=== PATIENT | female | born 1970 | race Two or more races ===

== ENCOUNTER 2017-05-31 06:16 | Day surgery (SDC) | payer OTHER ==
--- NOTE | 2017-05-30 10:34 | Pre-Procedure Note/Attestation ---
Pre-Procedure Note/Attestation Complete Prior to Procedure Planned Procedure: left Procedure Narrative: phaco with IOL, OS Indications for Procedure Pre-Operative Diagnosis: cataract Attestation I attest that I discussed the nature of the procedure; its benefits; risks and complications; and alternatives (and the risks and benefits of such alternatives ), prior to the procedure, with the patient (or the patient's legal rental sales representative). I attest that, if there was a reasonable possibility of needing a blood transfusion, the patient (or the patient's legal rental sales representative) was given the [facility] standardized written summary, pursuant to the [place]gard Josh Blood Safety Act ([place] Health and Safety Code # 1645, as amended). I attest that I re-evaluated the patient just prior to the surgery and that there has been no change in the patient's H&P, except as documented below: ORQUIDEA HANLEY May 30, 2017 10:34
--- NOTE | 2017-05-30 10:41 | Opthalmology H&P ---
Ophthalmology H&P H&P Chief Complaint: decreased vision in left eye HPI Vision Affects Ability to: read, focus/use eyes together, manage personal affairs HPI Narrative blurry vision Exam Visual Acuity: OD: 20/40 OS: 20/80 Tension: OD: 16 Eye Exam: normal OU: external exam, palpebral fissure-width, marginal reflex distance, levator function, corneas, anterior chambers, fundus exam, findings: lens - OD: IOL OS: ns Assessment/Plan Diagnosis: (1) Cataract Treatment Plan: cataract extraction w/ lens implant Goals of Treatment: improvement of vision, enhance quality of life Attestation Attestation The risks and benefits of the surgery as well as alternative procedures were explained to the patient in detail. ORQUIDEA HANLEY May 30, 2017 10:41
[2017-05-31] VITALS (10 sets, daily range): BP systolic 103–129; BP diastolic 65–79
[~2017-05-31] VITALS: Ht 165.1 cm; Wt 69.4 kg
[~2017-05-31 06:16] MED LIST: LEVOTHYROXINE88 MCG ORAL
[2017-05-31] MEDS ORDERED: Akten 3.5% 1ml Btl LEFT EYE ONE (07:00)
[2017-05-31] MEDS: Cyclopentolate 1% Opth Sol 2ml LEFT EYE SCH ×3 (07:59→08:19)
[2017-05-31] MEDS ORDERED: BSS 500ml btl ONE (08:00)
[2017-05-31] MEDS: Tropicamide 1% Opth 15ml Soln LEFT EYE SCH ×3 (08:00→08:19)
[2017-05-31] MEDS: Phenylephrine 10% Opth Soln 5ml LEFT EYE SCH ×3 (08:00→08:20)
[2017-05-31] MEDS ORDERED: Maxitrol Opth Oint 3.5gm ONE (08:00)
[2017-05-31] MEDS ORDERED: Dexamethasone 4mg/ml vial ONE (08:00)
[2017-05-31] MEDS ORDERED: Pred Forte 1% Opth Susp 1ml ONE (08:00)
[2017-05-31] MEDS: Tobramycin Op Soln 0.3% 5ml LEFT EYE SCH ×3 (08:00→08:20)
[2017-05-31] MEDS ORDERED: EPINEPHrine 1mg/1ml Amp ONE (08:00)
[2017-05-31] MEDS ORDERED: Pilocarpine 4% Opth 15ml Soln ONE (08:53)
[2017-05-31] MEDS ORDERED: NS Irrig 1000ml ONE (09:00)
[2017-05-31] MEDS ORDERED: Sterile Water Irrig 1000ml IRRIG ONE (09:00)
[2017-05-31] MEDS ORDERED: LR 1000ml ONE (09:00)
[2017-05-31] MEDS ORDERED: fentaNYL 100 mcg/2 mL IV ONE (09:00)
[2017-05-31] MEDS ORDERED: Midazolam 2mg/2ml Inj ONE (09:00)
--- NOTE | 2017-05-31 09:13 | Anethesia Preoperative Eval ---
Anesthesia Pre-op PMH/ROS General Date of Evaluation: May 31, 2017 Time of Evaluation: 09:11 Anesthesiologist: july ASA Score: ASA 2 Mallampati Score Class I : Soft palate, uvula, fauces, pillars visible Class II: Soft palate, uvula, fauces visible Class III: Soft palate, base of uvula visible Class IV: Only hard plate visible Mallampati Classification: Class II Surgeon: tristen Diagnosis: cataract Surgical Procedure: cataract extraction with IOL Anesthesia History: none Family History: no anesthesia problems Allergies: Coded Allergies: ACETAMINOPHEN (Verified Allergy, Intermediate, itching; swollen head, ) HYDROCODONE (Verified Allergy, Intermediate, itching, 05/30/17) VALDECOXIB (Verified Allergy, Mild, itching, 05/30/17) Medications: see eMAR Past Medical History Cardiovascular: Denies: HTN, CAD, MA, valve dz, arrhythmia, other Pulmonary: Denies: asthma, COPD, YULIA, other Gastrointestinal/Genitourinary: Denies: GERD, CRI, ESRD, other Neurologic/Psychiatric: Denies: dementia, CVA, depression/anxiety, TIA, other Endocrine: Reports: hypothyroidism, Denies: DM, steroids, other HEENT: Reports: cataract (L), Denies: cataract (R), glaucoma, [place] (L), [place] (R), other Hematology/Immune: Denies: anemia, DVT, bleeding disorder, other Musculoskeletal/Integumentary: Denies: OA, RA, DJD, DDD, edema, other PSxH Narrative: c/s right eye surgery Anesthesia Pre-op Phys. Exam Physician Exam Last Vital Signs Date Time Temp Pulse Resp B/P (MAP) Pulse Ox O2 Delivery O2 Flow Rate FiO2 05/31/17 08:03 97.3 61 20 129/78 99 Room Air Constitutional: NAD Neurologic: CN 2-12 intact Cardiovascular: RRR Respiratory: CTA Gastrointestinal: S/NT/ND Airway Exam Mallampati Score: Class II MO: full ROM: full Dentures: no upper, no lower Anesthesia Pre-op A/P Labs Urine Test Test 05/31/17 07:45 Urine HCG, Qualitative Negative Studies Pre-op Studies: EKG - sr Risk Assessment & Plan Plan: mac Status Change Before Surgery: No Pre-Antibiotics Drug: none TARRILLION,NAVDEEP SACK LIFTER May 31, 2017 09:13
--- NOTE | 2017-05-31 09:28 | Immediate Post-Op Evaluation ---
Immediate Post-Op Evalulation Immediate Post-Op Evalulation Procedure: cataract extraction left eye Date of Evaluation: May 31, 2017 Time of Evaluation: 09:25 IV Fluids: 300 Blood Pressure Systolic: 107 Blood Pressure Diastolic: 75 Pulse Rate: 62 Respiratory Rate: 14 O2 Sat by Pulse Oximetry: 98 Temperature (Fahrenheit): 97.7 Nausea: No Vomiting: No Complications none Patient Status: awake, reacts, patent Hydration Status: adequate Drug: none TARRILLION,NAVDEEP COOKIE MIXER HELPER May 31, 2017 09:28
[2017-05-31] MEDS ORDERED: BSS 15ml BTL ONE (09:58)
[2017-05-31] MEDS ORDERED: Povidone-Iodine 5% opth solution ONE (09:58)
[2017-05-31] MEDS ORDERED: Sodium Hyaluronate 14 mg/ml 0.85ml ONE (09:59)
--- NOTE | 2017-05-31 11:57 | 48 Hour Post Anesthesia Eval ---
Post Anesthesia Evaluation Procedure: cataract extraction left eye Date of Evaluation: May 31, 2017 Time of Evaluation: 11:56 Blood Pressure Systolic: 105 0: 70 Pulse Rate: 61 Respiratory Rate: 14 O2 Sat by Pulse Oximetry: 99 Airway: patent Nausea: No Vomiting: No Hydration Status: adequate Cardiopulmonary Status: stable Mental Status/LOC: patient returned to baseline Post-Anesthesia Complications: none Follow-up care needed: N/A NAVDEEP KING CRNA May 31, 2017 11:57
--- NOTE | 2017-06-03 09:15 | Brief Operative Note ---
Immediate Post Operative Note Operative Note Chief Complaint: blurry vision, OS Pre-op Diagnosis: cataract, OS Procedure: Phaco with IOL, OS Post-op Diagnosis: Pseudophakia, OS Post-op Diagnosis: same as pre-op Findings: consistent w/pre-op dx studies Surgeon: Mylene Anesthesiologist: Dora Anesthesia: MAC Specimen: none Complications: none Condition: stable Fluids: LR Estimated Blood Loss: none Drains: none Implant(s) used?: Yes ORQUIDEA HANLEY Jun 03, 2017 09:15
--- NOTE | 2017-06-04 09:20 | Operative Note - PDOC ---
Operative Note Operative Note Date of Operation/Procedure: May 31, 2017 Chief Complaint: blurry vision, OS Pre-op Diagnosis: cataract, OS Procedure: Phaco with IOL, OS Post-op Diagnosis: Pseudophakia, OS Post-op Diagnosis: same as pre-op Operative Findings: consistent w/pre-op dx studies Surgeon: Mylene Anesthesiologist: Dora Anesthesia: MAC Specimen: none Complications: none Condition: stable Fluids: LR Estimated Blood Loss: none Drains: none Implant(s) used?: Yes Indications for Procedure This patient has been complaining visually significant cataract in the affected eye with the best corrected visual acuity under moderate glare conditions worse. The patient complains of difficulties with glare in performing activities of daily living and wants to manage personal affairs with comfort and accuracy and see well enough to move with safety at home and outdoors. The risks, benefits and alternatives of the procedure were discussed with the patient in the office prior to scheduling surgery. All questions from the patient were answered after the surgical procedure was explained in detail. The risks of the procedure as explained to the patient include, but are not limited to, pain, infection, bleeding, loss of vision, retinal detachment, need for further surgery, loss of lens nucleus, double vision, etc. Alternative procedures were discussed which include, to do nothing or seek a second opinion. Informed consent for this procedure was obtained from the patient. The patient was referred to a primary care physician for a cardiopulmonary clearance prior to surgery, after proper evaluation was done patient was properly scheduled for outpatient surgery. The patient was brought to the operating room where the anesthesiologist established I.V. lines and cardiac monitoring leads. Mild intravenous sedation was administered. The patient was then prepared with a 5% solution of povidone- iodine to the conjunctival fornix and lashes, and a 5% solution of povidone- iodine to the lids and periorbital skin. The patient was then draped in the usual sterile fashion. A lid speculum was then placed in the operative eye. A keratome blade was then used to create a biplanar incision into the anterior chamber. Viscoelastics was then instilled into the anterior chamber. A capsulorrhexis was then fashioned with an utrata forceps. A G 27 was used to hydrodissect and hydro delineate the lens nucleus. Paracentesis incision was made at 3 o'clock with sharp blade. The phacoemulsification unit, after being properly adjusted and tested, was then used to emulsify the nucleus. Residual cortical material was aspirated with the irrigation and aspiration unit. Healon was then instilled into the anterior chamber. The corneal wound was then enlarged to the size of the optic with the nidhi keratome blade. The intraocular lens was then inspected for right power and size and thought to be satisfactory. Then the lens was gently placed in the capsular bag. Positioning within the capsular bag was confirmed by direct visualization. Optic centration was accomplished with a Sinskey hook. Viscoelastics was removed from the anterior chamber using the irrigation and aspiration unit. The corneal wound was then tested for leaks and none were found. The lid speculum were then removed. Sponge and needle counts were correct. An eye patch and shield were placed over the operative eye. The patient was taken to the recovery room in stable condition. There were no complications. The patient tolerated the procedure well. The patient was then transferred to the ambulatory surgery unit in stable and satisfactory condition , was given detailed written instructions and asked to follow up in the office the next day. Dictated & Transcribed: Sienna Traci HOLMAN JAMES Jun 04, 2017 09:20
== END 2017-05-31 11:00 | disposition home or self-care (01) ==
LOC: SUR 06:16
DX: H26.9 Unspecified cataract (principal); E03.9 Hypothyroidism, unspecified; F17.200 Nicotine dependence, unspecified, uncomplicated; Z82.49 Family history of ischemic heart disease and other diseases of the circulatory system; Z88.6 Allergy status to analgesic agent
CPT/HCPCS: 66984; 81025; J0171; J1100; J2250; J3010; J3370; J7120; V2632; Z7512; 94003; 94150